=== PATIENT | female | born 1935 | race Caucasian/White ===

== ENCOUNTER → 2017-06-20 | Outpatient (CLI) | payer MEDICARE, MEDICAID ==
[~2017-06-20] MED LIST: CLOP75 PO; FOLI1 PO; FURO20 PO; HYDR200T4 PO; METH2.5T6 PO; OMEP20 PO; SERT50TA12 PO; TRAM50TA4 PO
== END | disposition home or self-care (01) ==
LOC: RADPV 14:40
PROVIDERS: ATTEND Family Medicine
DX: M25.552 Pain in left hip (principal); Z96.642 Presence of left artificial hip joint
CPT/HCPCS: 73503